=== PATIENT | female | born 1955 | race Caucasian/White ===

== ENCOUNTER → 2024-05-05 | Emergency (ER) | payer OTHER ==
[~2024-05-05] VITALS: Ht 165.1 cm; Wt 59.4 kg
[~2024-05-05] MED LIST: HALOPERIDOL LACTATE INJ 5 MG/ML VIAL ONE; KETO10TA2 PO; KETOROLAC TROMETHAMINE INJ 30 MG/ML VIAL ONE; METOCLOPRAMIDE HCL 10 MG/2 ML VIAL ONE; SUMA100T PO; SUMATRIPTAN SUCCINATE 6 MG/0.5 ML VIAL SQ ONE
[2024-05-05] MEDS: IV NS 0.9% 1,000 ML BAG IV ONE (15:00)
[2024-05-05] MEDS: KETOROLAC TROMETHAMINE INJ 30 MG/ML VIAL IV ONE (15:00)
[2024-05-05] MEDS: METOCLOPRAMIDE HCL 10 MG/2 ML VIAL IV ONE (15:00)
[2024-05-05] MEDS: HALOPERIDOL LACTATE INJ 5 MG/ML VIAL IV ONE (15:19)
[2024-05-05] MEDS: SUMATRIPTAN SUCCINATE 6 MG/0.5 ML VIAL SQ ONE (15:21)
[2024-05-05 15:55] VITALS: BP 128/83; TEMP 97.6; O2SAT 98
== END | disposition home or self-care (01) ==
LOC: ER 14:29
DX: R51.9 Headache, unspecified (principal); R42 Dizziness and giddiness; H53.8 Other visual disturbances; I10 Essential (primary) hypertension; Z60.2 Problems related to living alone
CPT/HCPCS: 99285; 96374; 70450; 96361; 96375 ×2; 96372; J1630; J3030; J2765; J1885; J7030; A4223